=== PATIENT | male | born 1950 | race Caucasian/White ===

== ENCOUNTER → 2018-12-07 | Outpatient (CLI) | payer MEDICARE | END | disposition home or self-care (01) | LOC: RAH 13:29 | PROVIDERS: ATTEND Internal Medicine | DX: J43.8 Other emphysema (principal) | CPT/HCPCS: 71250 ==

== ENCOUNTER → 2018-12-26 | Outpatient (CLI) | payer MEDICARE ==
[~2018-12-26] MED LIST: IOHEXOL-350 50ML VIAL IV ONE
== END | disposition home or self-care (01) ==
LOC: RAH 09:04
PROVIDERS: ATTEND Otolaryngology
DX: E04.2 Nontoxic multinodular goiter (principal); J38.3 Other diseases of vocal cords
CPT/HCPCS: 70491; Q9967

== ENCOUNTER → 2018-12-28 | Outpatient (CLI) | payer MEDICARE | END | disposition home or self-care (01) | LOC: LAB 10:16 | PROVIDERS: ATTEND Internal Medicine | DX: I10 Essential (primary) hypertension (principal); J44.9 Chronic obstructive pulmonary disease, unspecified | CPT/HCPCS: 71046; 93005 ==

== ENCOUNTER → 2019-02-07 | Outpatient (CLI) | payer MEDICARE | END | disposition home or self-care (01) | LOC: OIH 16:04 | PROVIDERS: ATTEND Otolaryngology | DX: J44.9 Chronic obstructive pulmonary disease, unspecified (principal) | CPT/HCPCS: 71046 ==

== ENCOUNTER → 2019-04-18 | Outpatient (CLI) | payer MEDICARE ==
--- NOTE | 2019-04-18 12:00 | NUR ---
MBSS COMPLETE. SEVERE ORAL AND MILD PHARYNGEAL DYSPHAGIA. RECOMMEND PUREED, THIN LIQUIDS; PILLS WHOLE WITH APPLESAUCE OR WITH PUDDING. PATIENT INFORMATION: Pt IS A 68 Y.O. MALE REFERRED FOR AN MBSS SECONDARY TO S/P LARYNGECTOMY WITH PEG IN PLACE. Pt WAS ACCOMPANIED BY TO MBSS. Pt WITH STOMA PRESENT. Pt HAS A HISTORY OF LARYNGECTOMY 02/2019 AND PARTICIPATING IN SPEECH THERAPY AT THIS TIME. Pt HAS A PAST MEDICAL HISTORY OF COPD, LARYNGEAL CANCER S/P TOTAL LARYNGECTOMY, HYPERTENSION, PROSTATE CANCER, PEG 01/2019. MBSS INTERPRETATION: Pt PRESENTS WITH SEVERE ORAL AND MILD PHARYNGEAL DYSPHAGIA CAUSED BY DECREASED LINGUAL STRENGTH AND ROM, DECREASED LINGUAL CONTRACTION, CRICOPHARYNGEAL BAR PROMINENT E/B BOLUS POOLING ABOVE UES AND MILD RESIDUE BELOW UES REFLUXING WITHIN PHARYNX, CLEARED WITH RE-SWALLOW, BOLUS LOSS IN ORAL CAVITY (NO ABLE TO REORGANIZE), RESIDUE IN TONGUE BODY. A-P VIEW: RESIDUE ABOVE AND BELOW UES WITH ALL TEXTURES. INCREASED POOLING ABOVE UES WITH THIN LIQUIDS. NO STASIS OF BOLUS NOTED, ABLE TO CLEAR RESIDUE WITH RE-SWALLOW. TRIALS: 1. TSP PUREED: GOOD 2. TSP PUDDING: GOOD 3. TSP MIXED: INCREASED MASTICATION TIME 4. COOKIE: INCREASED MASTICATION WITH RESIDUE IN TONGUE BODY 5. CUP SIP THIN LIQUIDS: POOLING ABOVE UES (CLEARED WITH EFFORTFUL SWALLOW) 6. A-P PUDDING: RESIDUE ABOVE UES 7. A-P CUP SIP THIN LIQUIDS: POOLING ABOVE UES CLEARED WITH RE-SWALLOW RECOMMENDATIONS: 1. PUREED, THIN LIQUIDS; PILLS WHOLE WITH LIQUIDS OR APPLESAUCE 2. [facility] 3. COMPENSATORY STRATEGIES (PROPHYLAXIS): *SEATED AT 90 DEGREE ANGLE *REMAIN UPRIGHT 30 MINUTES AFTER MEAL TIMES *RE-SWALLOW 4. SKILLED SPEECH THERAPY 2XWK TARGETING SWALLOWING 5. GI CONSULT G-CODES SWALLOWING: [id number] Addendum: 04/18/19 at 1442 by JORGE YAÑEZ, [facility] Amended: Links added.
== END | disposition home or self-care (01) ==
LOC: RAH 10:44
PROVIDERS: ATTEND Otolaryngology
DX: R13.12 Dysphagia, oropharyngeal phase (principal); I10 Essential (primary) hypertension; J44.9 Chronic obstructive pulmonary disease, unspecified; Z90.02 Acquired absence of larynx; Z85.21 Personal history of malignant neoplasm of larynx; Z85.46 Personal history of malignant neoplasm of prostate
CPT/HCPCS: G8996; G8997; G8998; 74230; 92611